=== PATIENT | male | born 1985 | race Caucasian/White ===

== ENCOUNTER 2023-12-15 04:58 | Emergency (ER) | payer SELFPAY ==
[~2023-12-15] VITALS: Ht 167.6 cm; Wt 79.4 kg
--- NOTE | 2023-12-15 05:14 | NUR ---
ERMD at bedside. MSE in progress.
--- NOTE | 2023-12-15 05:35 | NUR ---
Lab at bedside for blood draw.
[2023-12-15 05:43] LABS: BASOPHILS # (AUTO) 0.1 K/UL (0.0-0.2); BASOPHILS % (AUTO) 0.9 % (0.0-2.0); EOSINOPHILS # (AUTO) 0.1 K/uL (0.0-0.7); EOSINOPHILS % (AUTO) 1.3 % (0.0-7.0); HEMATOCRIT 43.7 % (36.7-47.1); HEMOGLOBIN 15.1 g/dL (12.5-16.3); LYMPHOCYTES # (AUTO) 2.3 K/uL (0.8-4.8); LYMPHOCYTES % (AUTO) 37.2 % (20.5-51.5); MEAN CORPUSCULAR HEMOGLOBIN 35.5 uug (23.8-33.4); MEAN CORPUSCULAR HGB CONC 35 g/dL (32.5-36.3); MONOCYTES # (AUTO) 0.5 K/uL (0.1-1.30); MONOCYTES % (AUTO) 7.5 % (0.0-11.0); NEUTROPHILS # (AUTO) 3.3 K/uL (1.8-8.9); NEUTROPHILS % (AUTO) 53.1 % (38.5-71.5); PLATELET COUNT (AUTO) 247 K/uL (152-348); RED BLOOD CELL COUNT(AUTO) 4.25 MIL/uL (4.06-5.63); RED CELL DISTRIBUTION WIDTH 12.7 % (12.1-16.2); WHITE BLOOD COUNT (AUTO) 6.2 K/uL (3.6-10.2)
[2023-12-15 05:50] LABS: DIFFERENTIAL COMMENT 1
[2023-12-15 05:51] LABS: CALCIUM 8.3 mg/dL (8.5-10.1); CREATININE 0.8 mg/dL (0.6-1.3); POTASSIUM 3.6 mmol/L (3.5-5.1)
[2023-12-15 05:58] LABS: BILIRUBIN,DIRECT 0.1 mg/dL (0.0-0.2); BILIRUBIN,TOTAL 0.4 mg/dL (0.2-1.0); TOTAL PROTEIN, SERUM 7.7 g/dL (6.4-8.2)
--- NOTE | 2023-12-15 06:21 | NUR ---
Patient taken to CT by blood bank laboratory technologist via wheelchair. No acute distress noted.
--- NOTE | 2023-12-15 06:29 | NUR ---
Patient refused CT, ERMD notified.
[2023-12-15] MEDS: IV NORMAL SALINE 1000 ML BAG IV ONE (06:37)
--- NOTE | 2023-12-15 06:37 | NUR ---
IV fluids were not given due to patient leaving AMA.
--- NOTE | 2023-12-15 06:37 | NUR ---
Patient does not wish to proceed with medical care recommended by Dr. Ottnoiel Mak. Patient given information related to possible complications, up to and including , which could occur as a result of leaving the hospital at this time. Patient verbalizes understanding of risks involved due to leaving against medical advice. Patient has signed AMA form.
[2023-12-15 06:38] VITALS: BP 145/99; TEMP 98.6; O2SAT 100
== END 2023-12-15 06:39 | disposition left against medical advice (07) ==
LOC: ER 05:02
DX: F10.129 Alcohol abuse with intoxication, unspecified (principal); Y90.9 Presence of alcohol in blood, level not specified
CPT/HCPCS: 36415; 85025; A4606; A4663; G0480; J7040